=== PATIENT | female | born 1970 | race Caucasian/White ===

== ENCOUNTER 2017-03-01 06:26 | Day surgery (SDC) | payer OTHER ==
[~2017-03-01] VITALS: Ht 157.5 cm; Wt 69.4 kg
[2017-03-01 06:53] VITALS: BP 117/92
[2017-03-01 10:20] VITALS: BP 107/61
== END 2017-03-01 10:15 | disposition home or self-care (01) ==
LOC: GI 06:26 → OR 07:30 → GI 10:15
PROVIDERS: Internal Medicine Gastroenterology
PROC: 0DB68ZZ Excision of Stomach, Via Natural or Artificial Opening Endoscopic (ICD-10-PCS; principal; 2017-03-01 07:30)
DX: J31.2 Chronic pharyngitis (principal); B96.81 Helicobacter pylori [H. pylori] as the cause of diseases classified elsewhere; Z68.28 Body mass index [BMI] 28.0-28.9, adult
CPT/HCPCS: 43235; J1200; J1610; J2250; J2310; J3010; J3490